=== PATIENT | male | born 1990 ===

== ENCOUNTER → 2021-10-25 | Outpatient (CLI) | payer OTHER ==
[2021-10-25 19:22] LABS: ALBUMIN 4.1 g/dL (3.4-5.0); ALBUMIN/GLOBULIN RATIO 1.1 (1.0-1.7); CALCIUM 8.8 mg/dL (8.5-10.1); CREATININE 0.9 mg/dL (0.7-1.3); GFR 98.4; TOTAL BILIRUBIN 0.3 mg/dL (0.2-1.0)
[2021-10-25 19:23] LABS: POTASSIUM 4.5 mmol/L (3.5-5.1)
[2021-10-25 19:24] LABS: TOTAL PROTEIN 7.9 g/dL (6.4-8.2)
== END ==
LOC: SPEC 12:23
PROVIDERS: ATTEND Family Medicine
DX: R11.2 Nausea with vomiting, unspecified (principal)
CPT/HCPCS: 36415; 80053